=== PATIENT | male | born 1960 | race Caucasian/White ===

== ENCOUNTER 2024-05-20 20:50 | Emergency (ER) | payer BC, SELFPAY ==
[2024-05-20 20:53] VITALS: BP 165/103
[2024-05-21 00:27] VITALS: BMI 33.0
[2024-05-21] MEDS: MOTRIN 600 MG PO (00:42)
--- NOTE | 2024-05-21 01:06 | ED.GENMED ---
History of Present Illness
General
Chief Complaint: Musculo-Skeletal Complaint
Source: patient
Exam Limitations: none
Time Seen by Provider: 05/21/24 00:56
History of Present Illness
History of Present Illness:
See MDM
Past History
Past History
ED Past Medical History: HTN and Hypercholesterolemia
ED Past Surgical History: Orthopedic
Social History
Tobacco: Non-smoker
Alcohol: None
Phy Exam
Physical Exam
Physical Exam:
See MDM
Course
Orders/Labs/Results
Orders:
Orders
05/21/24 00:31
Hip, Right 2-3 Views [CR Hip - RT w/wo Pel 2-3 Vw*] Urgent
Comment:
Reason For Exam: fell, having pain
Include a pelvis x-ray?: Yes
05/21/24 00:40
Ibuprofen [Motrin] 600 mg PO NOW STA
05/21/24 01:05
Crutches-Treatment ONCE
Knee Immobilizer Right-Treatme ONCE
Ketorolac [Toradol] 30 mg IV NOW STA
Morphine Sulfate 4 mg IV NOW STA
Oxycodone/Acetaminophen [Percocet 5/325] 1 tablet PO NOW STA
Vital Signs
Initial and Last Documented VS:
Initial Vital Signs
Temp Pulse Resp BP Pulse Ox
98.5 F 95 18 165/103 98
05/20/24 20:53 05/20/24 20:53 05/20/24 20:53 05/20/24 20:53 05/20/24 20:53
Last Documented Vital Signs
Temp Pulse Resp BP Pulse Ox
98.5 F 95 18 165/103 98
05/20/24 20:53 05/20/24 20:53 05/20/24 20:53 05/20/24 20:53 05/20/24 20:53
MDM/Problems Addressed
Differential Diagnosis Includes:
HPI and MDM Narrative:
64-year-old male presenting with right thigh pain. Patient slipped earlier today and has been having trouble walking ever since. He localizes the pain to his buttock. He is having trouble with hip extension. He denies numbness or tingling.
Motrin is not helping. Pelvic x-rays performed showing no obvious fracture. On exam, patient appears to have hamstring strain or possibly tear at the origin site by the posterior pelvis. No skin changes or bleeding to suggest muscle tear. Will
give pain medicine and knee immobilizer and crutches discussed follow-up with orthopedics for further evaluation
Physical exam
General: Mildly uncomfortable. Standing in the room
HEENT: protecting airway
Neck: appears supple
CV: No evidence of cyanosis
Resp: No accessory muscle use
Abd: Non-distended
Extremities: No deformities. Tenderness to right buttock along hamstring origin. Decreased hip extension secondary to pain
Neuro: alert
Psych: Normal affect
Skin: Intact
Problems Addressed including Acute and Chronic Conditions affecting care:
1. Right hamstring injury
Acuity: acute
Prognosis: stable
Details: X-ray negative for fracture. Will provide pain medicine in the immobilizer and discussed follow-up with orthopedics
Differential Diagnosis (but not limited to): Hamstring tear, hamstring strain
Drug therapy (if applicable): OTC meds, please see d/c instruction regarding Rx drugs
Amount and/or Complexity of Data Reviewed
Clinical info obtained from: Patient
External data reviewed: N/A
Labs I independently reviewed (but not limited to): N/A
Radiology: X-ray independently reviewed:
Pulse Ox: not hypoxic
EKG independently reviewed: N/A
Hogshead Weigher: N/A
Critical Care: N/A
Risk of Complication:
Social Determinants of health: Good social support
Discussed with other providers: N/A
Escalation of Care includes Admit/Obs: After being observed in the Emergency Department, pt stable for discharge.
Occasional wrong word or 'sound a like' substitutions may have occurred due to the inherent limitations of voice recognition software. Read the chart carefully and recognize, using context, where substitutions have occurred.
*Critical Care Note
Total Time (30-74mins, 75-104mins- exclusive of procedures): Not Applicable
ED Attending Note
-
Portions of this chart may have been created with voice recognition software.� Occasional wrong word or��sound alike� substitutions may have occurred due to the inherent limitations of voice recognition software.
Discharge Plan
Departure
Patient Disposition: Home (Routine Discharge)
Date of Disposition: 05/21/24
Time of Disposition: 01:06
Patient with high blood pressure during this ER visit?: Yes
Discharge Problem:
Right hamstring muscle strain
Prescriptions:
New
oxycodone 5 mg tablet
5 mg PO Q8H PRN (Reason: Pain) Qty: 14 0RF
Referrals:
Maurice Salazar MD [Active] -
Activity Restrictions/Additional Instructions:
Please return for any worsening symptoms.
You may return at any time if you have further concerns.
Please follow up with your doctor at the first available appointment, preferably this week.
Please make an appointment to see the orthopedist.
Thank you for choosing [facility].
Interventions
Interventions:
*Risk Screen - Suicide Last Done: 05/20/24 20:53
*General Assessment Last Done: 05/20/24 20:53
*Neglect/Abuse Screening Last Done: 05/20/24 20:53
*ED COVID-19 Vaccine History Last Done: 05/20/24 20:53
ED-Musculoskeletal Assessment Last Done: 05/21/24 00:25
Discharge Date and Time
Print Language: SWEDISH
[2024-05-21] MEDS: TORADOL 30 MG IV (01:10)
[2024-05-21] MEDS: MORPHINE SULFATE 4 MG IV (01:11)
[2024-05-21] MEDS: PERCOCET 5/325 1 TABLET PO (01:31)
== END 2024-05-21 01:49 | disposition home or self-care (01) ==
LOC: EMR 20:50
PROVIDERS: EMERGENCY PHYSICIAN Student in an Organized Health Care Education/Training Program; FAMILY PHYSICIAN Nurse Practitioner
DX: S76.311A Strain of muscle, fascia and tendon of the posterior muscle group at thigh level, right thigh, initial encounter (principal); W01.0XXA Fall on same level from slipping, tripping and stumbling without subsequent striking against object, initial encounter; R03.0 Elevated blood-pressure reading, without diagnosis of hypertension
CPT/HCPCS: 99283; 29505; 73502

== ENCOUNTER 2024-09-04 08:42 | Outpatient (RCR) | payer BC, SELFPAY | END 2024-09-04 23:59 | disposition home or self-care (01) | LOC: CRHB 08:42 | PROVIDERS: ATTENDING PHYSICIAN Internal Medicine Cardiovascular Disease; FAMILY PHYSICIAN Nurse Practitioner | DX: I21.4 Non-ST elevation (NSTEMI) myocardial infarction (principal); Z95.5 Presence of coronary angioplasty implant and graft | CPT/HCPCS: 93798 ==

== ENCOUNTER 2024-09-25 08:40 | Outpatient (RCR) | payer BC, SELFPAY | END 2024-09-25 23:59 | disposition home or self-care (01) | LOC: CRHB 08:40 | PROVIDERS: ATTENDING PHYSICIAN Internal Medicine Cardiovascular Disease; FAMILY PHYSICIAN Nurse Practitioner | DX: I25.10 Atherosclerotic heart disease of native coronary artery without angina pectoris (principal); I21.4 Non-ST elevation (NSTEMI) myocardial infarction (principal); Z95.5 Presence of coronary angioplasty implant and graft; I25.2 Old myocardial infarction | CPT/HCPCS: 93797; 93798 ==

== ENCOUNTER 2024-10-23 08:45 | Outpatient (RCR) | payer BC, SELFPAY | END 2024-10-23 23:59 | disposition home or self-care (01) | LOC: CRHB 08:45 | PROVIDERS: ATTENDING PHYSICIAN Internal Medicine Cardiovascular Disease; FAMILY PHYSICIAN Nurse Practitioner | DX: I25.10 Atherosclerotic heart disease of native coronary artery without angina pectoris (principal); Z95.5 Presence of coronary angioplasty implant and graft; I25.2 Old myocardial infarction | CPT/HCPCS: 93798 ==

== ENCOUNTER 2024-12-04 08:51 | Outpatient (RCR) | payer BC, SELFPAY | END 2024-12-04 23:59 | disposition home or self-care (01) | LOC: CRHB 08:51 | PROVIDERS: ATTENDING PHYSICIAN Internal Medicine Cardiovascular Disease; FAMILY PHYSICIAN Nurse Practitioner | DX: I25.10 Atherosclerotic heart disease of native coronary artery without angina pectoris (principal); I21.4 Non-ST elevation (NSTEMI) myocardial infarction (principal); Z95.5 Presence of coronary angioplasty implant and graft; I25.2 Old myocardial infarction | CPT/HCPCS: 93797; 93798; G0422 ==